=== PATIENT | female | born 1970 | race Two or more races ===

== ENCOUNTER 2016-09-18 10:33 | Emergency (ER) | payer OTHER ==
[2016-09-18] MEDS ORDERED: Ondansetron INJ* 2 MG/ML VIAL IV ONE (11:06)
[2016-09-18] MEDS ORDERED: Ketorolac INJ* 30 MG/ML 1 ML VIAL IV PUSH ONE (11:06)
[2016-09-18] MEDS ORDERED: NS 0.9% 1000 ML* 1,000 ML IV ONE (11:07)
--- NOTE | 2016-09-18 11:08 | ED ---
Abdominal Pain/Female - HPI Summary HPI Summary: 45F presents with intense lower abdominal pain today for 2 hours. She states pain was sharp in nature and felt like something cutting her in her pelvis. She has never had this pain before. She has history of fibroids that cause her pain. She states the pain was so bad it made her vomit three times. She denies any diarrhea, constipation, dysuria, hematuria, vaginal discharge, or fever. She has had spotting vaginally as she is going through menopause. Her pain now is mild. She states that the abdominal pain goes across entire lower abdomen. - History of Current Complaint Chief Complaint: EDAbdPain Stated Complaint: ABD PAIN Time Seen by Provider: 09/18/16 10:50 Pain Intensity: 0 Allergies/Adverse Reactions: Allergies Allergy/AdvReac Type Severity Reaction Status Date / Time No Known Allergies Allergy Verified 09/18/16 11:43 PMH/Surg Hx/FS Hx/Imm Hx Endocrine/Hematology History: Denies: Hx Diabetes Cardiovascular History: Denies: Hx Hypertension, Hx Pacemaker/ICD Respiratory History: Denies: Hx Asthma Sensory History: Denies: Hx Hearing Aid Psychiatric History: Denies: Hx Panic Disorder - Cancer History Hx Chemotherapy: No Hx Radiation Therapy: No - Surgical History Surgery Procedure, Year, and Place: BREAST REDUCTION 16 YRS AGO Infectious Disease History: No Infectious Disease History: Denies: Traveled Outside the [place] in Last 30 Days - Social History Alcohol Use: None Substance Use Type: Reports: None Smoking Status (MU): Never Smoked Tobacco Review of Systems Negative: Fever Negative: Chest Pain Negative: Shortness Of Breath Positive: Abdominal Pain - lower abdominal pain, Vomiting. Negative: Diarrhea, Nausea All Other Systems Reviewed And Are Negative: Yes Physical Exam Triage Information Reviewed: Yes Vital Signs On Initial Exam: Initial Vitals Temp Pulse Resp BP Pulse Ox 97.9 F 64 20 99/59 95 09/18/16 10:40 09/18/16 10:40 09/18/16 10:40 09/18/16 10:40 09/18/16 10:40 Vital Signs Reviewed: Yes Appearance: Positive: Well-Appearing Skin: Positive: Warm, Dry Head/Face: Positive: Normal Head/Face Inspection Eyes: Positive: Normal, Conjunctiva Clear Respiratory/Lung Sounds: Positive: Clear to Auscultation, Breath Sounds Present Cardiovascular: Positive: Normal, RRR Abdomen Description: Positive: Soft, Other: - mild tenderness over RLQ and LLQ Bowel Sounds: Positive: Present Diagnostics - Vital Signs Vital Signs Temp Pulse Resp BP Pulse Ox 09/18/16 10:42 65 96 09/18/16 10:40 97.9 F 64 20 99/59 95 - Laboratory Result Diagrams: 09/18/16 11:30 09/18/16 11:30 Lab Statement: Any lab studies that have been ordered have been reviewed, and results considered in the medical decision making process. - Ultrasound No standard instances Ultrasound Interpretation: Positive (See Comments) - IMPRESSION: 1. FIBROID UTERUS. 2. THE LEFT OVARY IS NOT WELL-VISUALIZED. 3. THERE IS A SMALL AMOUNT OF FREE FLUID WITHIN THE PELVIC CUL-DE-SAC. THIS MAY BE PHYSIOLOGIC WITHIN A REPRODUCTIVE AGE FEMALE Ultrasound Interpretation Completed By: Radiologist Re-Evaluation - Re-Evaluation First Eval Re-Evaluation Time: 13:14 Change: Improved Comment: pain resolved Abdominal Pain Fem Course/Dx - Course Course Of Treatment: 45F presents with intense lower abdominal pain for couple hours. States pain has decreased. vomited due to pain. pain now is currently mild. denies any other symptoms. never had pain before. exam mild RLQ and LLQ pain. labs normal WBC and CRP, u/a leuko and epithelial cells will wait for final culture due to no UTI symptoms. u/a shows fibriods, left ovary not seen do not suspect torison as pain has resolved. suspect likely due to fibriods. told to follow up with ortho. patient understands and agrees with plan - Diagnoses Differential Diagnosis: Positive: Ovarian Cyst, Urinary Tract Infection, Other - fibriods Provider Diagnoses: Abdominal pain Discharge - Discharge Plan Condition: Good Disposition: HOME Patient Education Materials: Uterine Fibroids (ED) Referrals: Laura Taylor MD [Primary Care Provider] - Gracia Phillips MD [Medical Doctor] - Additional Instructions: Take Tylenol or ibuprofen every [address] heat on area Follow up with obgyn Return to ED if develop any new or worsening symptoms
[2016-09-18 11:49] LABS: Hematocrit 42 % (35-47); Hemoglobin 13.8 g/dl (12.0-16.0); Mean Corpuscular HGB Conc 33 g/dl (31-36); Mean Corpuscular Hemoglobin 29 pg (27-31); Mean Corpuscular Volume 88 fL (80-97); Mean Platelet Volume 10 um3 (7.4-10.4); Red Blood Count 4.75 10^6/ul (4.0-5.4); Red Cell Distribution Width 14 % (10.5-15); White Blood Count 7.9 10^3/ul (3.5-10.8)
[2016-09-18 12:08] LABS: ALT 20 U/L (7-52); AST 18 U/L (13-39); Albumin 3.6 g/dL (3.2-5.2); Alkaline Phosphatase 44 U/L (34-104); Anion Gap 6 mmol/L (2-11); BUN/Creatinine Ratio 20.4 (8-20); Blood Urea Nitrogen 11 mg/dL (6-24); CO2 Carbon Dioxide 23 mmol/L (22-32); Calcium 8.6 mg/dL (8.6-10.3); Chloride 107 mmol/L (101-111); EGFR Non-African American 122.1 (>60); Globulin 2.7 g/dL (2-4); Glucose 91 mg/dL (70-100); Lipase 24 U/L (11.0-82.0); Sodium 136 mmol/L (133-145); Total Protein 6.3 g/dL (6.4-8.9)
[2016-09-18 12:18] VITALS: BP 98/61
--- NOTE | 2016-09-18 12:48 | RAD ---
HISTORY: Pelvic pain, history of fibroids COMPARISONS: None TECHNIQUE: Multiple transverse and longitudinal ultrasound images were obtained of the pelvis using grayscale, color Doppler, and spectral Doppler imaging using the transabdominal and endovaginal transducers. FINDINGS: UTERUS: The uterus measures 8.2 x 4.1 x 5.4 cm. There are multiple uterine fibroids, the largest is noted a subserosal position towards the fundus to the right of midline measuring 6.7 x 6.9 x 5.7 cm ENDOMETRIUM: The endometrial stripe is smooth. The endometrium measures 0.9 cm in thickness. CUL-DE-SAC: There is a small amount of simple fluid within the cul-de-sac. This may be physiologic in a reproductive age female. RIGHT OVARY: The right ovary measures 2.5 x 2.8 x 1.4 cm. Normal arterial and venous waveforms are identifiable within the ovary on spectral Doppler imaging. LEFT OVARY: The left ovary is not visualized BLADDER: The bladder is not well visualized. IMPRESSION: 1. FIBROID UTERUS. 2. THE LEFT OVARY IS NOT WELL-VISUALIZED. 3. THERE IS A SMALL AMOUNT OF FREE FLUID WITHIN THE PELVIC CUL-DE-SAC. THIS MAY BE PHYSIOLOGIC WITHIN A REPRODUCTIVE AGE FEMALE
[2016-09-18 13:58] LABS: Urine Bacteria Absent (Absent); Urine Bilirubin Negative (Negative); Urine Glucose Negative (Negative); Urine Nitrite Negative (Negative)
== END 2016-09-18 13:36 | disposition home or self-care (01) ==
LOC: ED 10:33
DX: R10.30 Lower abdominal pain, unspecified (principal); R11.10 Vomiting, unspecified
CPT/HCPCS: 36415; 76830; 76856; 80053; 81003; 81015; 83690; 84702; 85025; 86141; 87086; 99283; J1885; J2405